=== PATIENT | male | born 1960 | race Caucasian/White ===

== ENCOUNTER 2016-12-31 12:08 | Emergency (ER) | payer OTHER ==
[2016-12-31 13:10] VITALS: BP 174/94
--- NOTE | 2016-12-31 13:22 | UC ---
Throat Pain/Nasal Garret HPI - HPI Summary HPI Summary: 56 y/o male presents to the urgent care c/o sore throat and left ear pain for the past 4 days. He also states subjective fever and chills at home. Pain with swallowing is 8/10, left side on neck is painful. He has taken Ibuprofen PO and apply vicks yesterday. Pt denies cough, nasal congestion, SOB, chest pain, abdominal pain, N/V/D. He states his BP is always elevated when he goes to the doctor. - History of Current Complaint Chief Complaint: UCGeneralIllness Stated Complaint: ST, EAR ACHE LEFT SIDE Time Seen by Provider: 12/31/16 12:54 Hx Obtained From: Patient Onset/Duration: Gradual Onset, Lasting Days - 4 days, Still Present Severity: Severe Pain Intensity: 8 Pain Scale Used: 0-10 Numeric Cough: None Associated Signs & Symptoms: Positive: Dysphagia, Fever. Negative: Wheezing, Sinus Discomfort, Nasal Discharge - Epiglottits Risk Factors Epiglottis Risk Factors: Negative - Allergies/Home Medications Allergies/Adverse Reactions: Allergies Allergy/AdvReac Type Severity Reaction Status Date / Time No Known Allergies Allergy Verified 12/31/16 13:06 PMH/Surg Hx/FS Hx/Imm Hx Previously Healthy: Yes - Pt denies PMHX - Surgical History Surgical History: None - Family History Known Family History: Positive: Hypertension - Social History Occupation: Employed Full-time Lives: With Family Alcohol Use: 2 beers daily Substance Use Type: None Smoking Status (MU): Never Smoked Tobacco - Immunization History Most Recent Influenza Vaccination: Not the 2016/2017 Season Review of Systems Constitutional: Fever, Chills Skin: Negative Eyes: Negative ENT: Sore Throat, Ear Ache - left ear pain, Other - left side lymphnode pain and swollen Respiratory: Negative Cardiovascular: Negative Gastrointestinal: Negative Genitourinary: Negative Motor: Negative Neurovascular: Negative Musculoskeletal: Negative Neurological: Negative Psychological: Negative Is Patient Immunocompromised?: No All Other Systems Reviewed And Are Negative: Yes Physical Exam Triage Information Reviewed: Yes Vital Signs: Initial Vital Signs Temp 99.4 F 12/31/16 13:03 Pulse 80 12/31/16 13:03 Resp 18 12/31/16 13:03 BP 174/94 12/31/16 13:03 Pulse Ox 98 12/31/16 13:03 - Additional Comments VITAL SIGNS: Reviewed. GENERAL: Patient is a well developed and nourished male who is sitting comfortable in the examining table. Patient is not in any acute respiratory distress. HEAD AND FACE: No signs of trauma. No ecchymosis, hematomas or skull depressions. No sinus tenderness. EYES: PERRLA, EOMI x 2, No injected conjunctiva, no nystagmus. No photophobia. EARS: Hearing grossly intact. LF external ear canl impacted with cerumen unable to visualize TM. Rt external ear canal clear, RT TM WNL. MOUTH: Positive pharynx with moderate erythema, no exudates, mild palatal petechiae. B/L tonsillar enlargement with no exudate. LF>RT. Uvula in midline. NECK: Supple, trachea is midline, Positive anterior cervical lymphadenopathy, no JVD, no carotid bruit, no c-spine tenderness, neck with full ROM. No meningeal signs, no Kernig's or brudzinskis signs. CHEST: Symmetric, no tenderness at palpation LUNGS: Clear to auscultation bilaterally. No wheezing or crackles. CVS: Regular rate and rhythm, S1 and S2 present, no murmurs or gallops appreciated. ABDOMEN: Soft, non-tender. No signs of distention. No rebound no guarding, and no masses palpated. Bowel sounds are normal. EXTREMITIES: FROM in all major joints, no edema, no cyanosis or clubbing. NEURO: Alert and oriented x 3. No acute neurological deficits. Speech is normal and follows commands. SKIN: Dry and warm Throat Pain/Nasal Course/Dx - Course Course Of Treatment: 56 y/o male presents to the urgent care c/o sore throat and left ear pain for the past 4 days. He also states subjective fever and chills at home. Pain with swallowing is 8/10, left side on neck is painful. He has taken Ibuprofen PO and apply vicks yesterday. Pt denies cough, nasal congestion, SOB, chest pain, abdominal pain, N/V/D. He states his BP is always elevated when he goes to the doctor. Hx obtained. Pt with pharyngitis and left ear impacted with cerumen on examiantion. Rapid strep ordered, result: negative. Left ear irrigation ordered. Performed by [facility]. Pt tolerated well procedure and Left TM injected and with purulent discharge. Pt Rx amoxicillin PO and ibuprofen PO to alleviates symptoms of pain and swelling. Advised on hand washing to avoid spreading. Pt advised to rest, eat well and avoid strenuous exercise.Pt 's BP is elevated today , advised to decrease salt in diet. If symptoms do not improve or worsen advised to f/u with ENT Dr Lang or PCP for further evaluation and treatment. Pt understood and agreed with plan of care. - Differential Dx/Diagnosis Differential Diagnosis/HQI/PQRI: Laryngitis, Mononucleosis, Otitis Media, Peritonsillar Abscess, Pharyngitis, Tonsillitis, URI, Other - cerumen impaction Provider Diagnoses: 1- left ear acute otitis media. 2- Left ear with cerumen impaction. 3- Pharyngitis. 4- elevated BP w/o Hx of HTN Discharge - Discharge Plan Condition: Stable Disposition: HOME Prescriptions: Amoxicillin PO (*) [Amoxicillin 875 MG (*)] 875 mg PO BID #20 tab Ibuprofen TAB* [Motrin TAB* 800 MG] 800 mg PO Q6H #20 tab Patient Education Materials: Pharyngitis (ED), Cerumen Impaction (ED), Otitis Media (ED), Low Sodium Diet (ED) Referrals: Arslan Lang MD [Medical Doctor] - If Needed Gurpreet Wei MD [Primary Care Provider] - If Needed Additional Instructions: 1- Please take the full course of the antibiotic to avoid resistance. 2-Please take ibuprofen PO q6-8hrs prn as instructed after meals to alleviate pain and swelling. Increase fluid intake, eat well, rest and avoid strenuous exercise 3-If symptoms do not improve or worsen please f/u with ENT or your PCP in 1 week for further evaluation and treatment. 4- Ypur BP is elevated today , please decrease salt in your diet , monitor your BP at home, if it continues to be elevated f/u with your PCP for further management
== END 2016-12-31 13:54 | disposition home or self-care (01) ==
LOC: UCCORT 12:08
DX: H66.92 Otitis media, unspecified, left ear (principal); H61.22 Impacted cerumen, left ear; J02.9 Acute pharyngitis, unspecified; R03.0 Elevated blood-pressure reading, without diagnosis of hypertension
CPT/HCPCS: 87651; 99203; G0463